=== PATIENT | male | born 1970 | race Caucasian/White ===

== ENCOUNTER 2018-05-06 01:20 | Emergency (ER) | payer MEDICAID ==
[~2018-05-06] VITALS: Ht 157.5 cm; Wt 73.0 kg
[2018-05-06] MEDS ORDERED: ONDANSETRON HCL 4MG/2ML INJ IV STA (01:57)
[2018-05-06] MEDS ORDERED: SODIUM CHLORIDE 0.9% 1,000 ML IV ONE (01:57)
[2018-05-06] MEDS ORDERED: MORPHINE SULFATE 4 MG/ML CPJ (NOT FOR IM USE) IV STA (01:57)
[2018-05-06] MEDS ORDERED: FAMOTIDINE 20MG/2ML VIAL IV ONE (02:00)
[2018-05-06] MEDS ORDERED: MAGNESIUM/ALUMINUM HYDROXIDE/SIMETHICONE 30ML UDC PO ONE (02:00)
[2018-05-06 02:26] LABS: BASOPHILS % 0.4 % (0.0-2.0); EOSINOPHILS % 1.5 % (0.0-5.0); HEMATOCRIT. 44.8 % (42.0-52.0); HEMOGLOBIN. 15.6 g/dL (14.0-18.0); LYMPHOCYTES % 27.9 % (20.0-50.0); MEAN CORPUSCULAR HEMOGLOBIN 30.5 pg (28.0-32.0); MEAN CORPUSCULAR VOLUME 87.7 fL (80.0-94.0); MEAN PLATELET VOLUME 7.9 fl (7.4-10.4); MONOCYTES % 6.7 % (2.0-8.0); NEUTROPHILS % 63.5 % (40.0-76.0); PLATELET 289 x1000/uL (130-400); RED BLOOD CELL COUNT 5.11 mill/uL (4.7-6.1); RED CELL DISTRIBUTION WIDTH 13.6 % (11.6-14.6)
[2018-05-06 02:28] LABS: CHLORIDE 106 mEq/L (98-107)
[2018-05-06 02:32] LABS: ETHANOL BLOOD < 10 mg/dL; INR 1.1; PARTIAL THROMBOPLASTIN TIME 29.6 sec (23.4-31.0); PROTHROMBIN TIME 10.7 sec (9.1-11.1)
[2018-05-06 04:49] LABS: CLARITY URINE CLEAR (CLEAR); COLOR URINE YELLOW (YELLOW); KETONES URINE TRACE (NEGATIVE); LEUKOCYTE ESTERASE URINE NEGATIVE (NEGATIVE); NITRITE URINE NEGATIVE (NEGATIVE); OCCULT BLOOD URINE NEGATIVE (NEGATIVE); PROTEIN URINE NEGATIVE (NEGATIVE); SPECIFIC GRAVITY URINE 1.009 (1.005-1.030); UROBILINOGEN URINE 0.2 E.U./dL (0.2-1.0)
[2018-05-06 05:03] VITALS: BP 128/81
[2018-05-06 05:06] LABS: *AMPHETAMINES SCREEN URINE NEGATIVE (NEGATIVE); *BARBITURATES SCREEN URINE NEGATIVE (NEGATIVE)
[2018-05-06 05:07] LABS: *BENZODIAZEPINES SCREEN URINE NEGATIVE (NEGATIVE); *COCAINE SCREEN URINE NEGATIVE (NEGATIVE); CANNABINOID URINE SCREEN NEGATIVE (NEGATIVE); METHADONE URINE SCREEN NEGATIVE (NEGATIVE); OPIATES URINE SCREEN PRESUMTIVE POSITIVE (NEGATIVE); PHENCYCLIDINE URINE SCREEN NEGATIVE (NEGATIVE)
== END 2018-05-06 05:19 | disposition home or self-care (01) ==
LOC: ER 01:20
DX: K29.70 Gastritis, unspecified, without bleeding (principal); R07.89 Other chest pain
CPT/HCPCS: 36415; 71045; 80053; 80305; 81003; 83880; 84484; 85025; 85610; 85730; 93005; 96361; 96374; 96375; 99285; G0482; J2270; J2405; J3490; J7030